=== PATIENT | female | born 1985 | race Caucasian/White ===

== ENCOUNTER → 2018-01-15 11:18 | Day surgery (SDC) | payer BC ==
[~2018-01-15 11:18] MED LIST: Acetaminophen TAB* 325 MG ONE; Acetaminophen TAB* 325 MG PO ONE; Acetaminophen TAB* 325 MG PO PRN; Buffered Lidocaine 0.9% SYRIN* 5 ML/SYR SYRINGE INTRADERM ONE; Buffered Lidocaine 0.9% SYRIN* 5 ML/SYR SYRINGE ONE; Bupivacaine 0.25% W/EPI* 10 ML SDV ONE; Clindamycin 900 MG/D5W BAG(*) 900 MG/50 ML BAG IVPB ONE; Dexamethasone IV* 4 MG/ML 1 ML (4 MG) ONE; DiMENhydriNATE IV* 50 MG/ML VIAL IV PUSH PRN; Famotidine IV* 10 MG/ML 2 ML (20 mg) ONE; Gentamicin ADULT (*) 300 MG in NS 0.9% 100 ML* 100 ML IVPB ONE; HYDROcodone/ACETAMIN 5-325 MG* 1 TAB ONE; HYDROcodone/ACETAMIN 5-325 MG* 1 TAB PO PRN; Ketorolac INJ* 30 MG/ML 1 ML VIAL ONE; Lidocaine 2% PF * 5 ML VIAL ONE; Midazolam* 1 MG/ML 2 ML VIAL (2 MG) ONE; Mivacurium Chloride* 20 MG/10 ML VIAL IV ONE; Naloxone* 0.4 MG/ML 1 ML VIAL IV PRN; Ondansetron INJ* 2 MG/ML VIAL IV PRN; Ondansetron INJ* 2 MG/ML VIAL ONE; PROCHLORPERAZINE INJ 5 MG/ML 2 ML VIAL IV PRN; Propofol* 10 MG/ML 20 ML BTL IV PUSH ONE; diPHENhydraMINE IV* 50 MG/ML 1 ml VIAL (BENADRYL) IV PRN; fentaNYL* 50 MCG/ML 2 ML VIAL (100 MCG VIAL) IV PRN; fentaNYL* 50 MCG/ML 2 ML VIAL (100 MCG VIAL) ONE
--- NOTE | 2018-01-15 17:34 | OP ---
Operative Report - Blank - Operative Report Date of Operation: 01/15/18 Note: Brief Operative Note Preop Dx: symptomatic cholelithiasis (vs polyp) Postop Dx: same Procedure: laparoscopic cholecystectomy Anesthesia: GET Surgeon: Toribio Day Care Aide: JUNE Ferris Fluids: 1400 ml RL EBL: < 25 ml Specimen: gallbladder Drains: none Findings: dictated
[2018-01-15 19:17] VITALS: BP 100/61
== END | disposition home or self-care (01) ==
LOC: OR 11:18
PROVIDERS: ATTEND Surgery
DX: K81.1 Chronic cholecystitis (principal); Z87.891 Personal history of nicotine dependence; F41.9 Anxiety disorder, unspecified
CPT/HCPCS: 81025; 88304; A9270-GY; J1100; J1580; J1885; J2250; J2405; J2704; J3010

== ENCOUNTER 2018-12-26 00:05 | Inpatient (IN) | payer BC ==
[2018-12-26] MEDS ORDERED: OBEPIDURAL* 250 ML EPIDURAL ONE (00:26)
[2018-12-26 00:36] LABS: Hematocrit 37 % (35-47); Hemoglobin 12.8 g/dL (12.0-16.0); Mean Corpuscular HGB Conc 35 g/dL (31-36); Mean Corpuscular Hemoglobin 31 pg (27-31); Mean Corpuscular Volume 90 fL (80-97); Mean Platelet Volume 8.6 fL (7.4-10.4); Platelet Count 234 10^3/uL (150-450); Red Blood Count 4.11 10^6 /uL (3.70-4.87); Red Cell Distribution Width 13 % (10-15); White Blood Count 15.2 10^3/uL (3.5-10.8)
[2018-12-26] MEDS ORDERED: Lactated Ringers 1000 ML Bag* 1,000 ML IV ONE ×2 (01:38→01:49)
[2018-12-26] MEDS ORDERED: Sodium Citrate/Citric Acid* 15 ML UDC PO PRN (01:38)
[2018-12-26] MEDS ORDERED: Famotidine TAB* 20 MG PO PRN (01:38)
[2018-12-26] MEDS ORDERED: Lactated Ringers 1000 ML Bag* 500 ML IV PRN ×2 (01:38)
[2018-12-26] MEDS ORDERED: Phenylephrine 40 MCG/ML SYRINGE IV PUSH PRN ×2 (01:38)
[2018-12-26] MEDS ORDERED: Buffered Lidocaine 1% SYRIN* 1 ML/SYRINGE INTRADERM ONE (01:49)
[2018-12-26] MEDS ORDERED: Lactated Ringers 1000 ML Bag* 1,000 ML IV SCH ×4 (02:00→09:00)
[2018-12-26] MEDS ORDERED: OBEPIDURAL* 250 ML EPIDURAL SCH (02:00)
--- NOTE | 2018-12-26 02:03 | HP ---
General Information - Reason for Visit Pt reports labor ctx increasing in frequency and intensity - General Information Maternal Age: 33 Grav: 3 Para: 1 SAB: 1 IEA: 0 Estimated Due Date: 01/02/19 Determined By: LMP Maternal Blood Type and Rh: A Positive - Results this Serology/RPR Result: Non-Reactive Rubella Result: Immune HBsAg Result: Negative HIV Result: Negative GBS Culture Result: Negative Past Medical History Delivery History: Hx Complicated Vaginal Delivery - meconium aspiration Pertinent Past Medical History: Non-Contributory Pertinent Past Surgical History: See Records - D&C, cholecystectomy Pertinent Family History: Non-Contributory - Antepartal Records Antepartal Records: Reviewed, Uncomplicated Review of Systems Constitutional: Comfortable - now that she has epidural, was very uncomfortable on arrival CV Complaint: No Respiratory: Shortness of Breath: No Gastrointestinal: No Nausea/Vomiting, Normal Bowel Movement Genitourinary: No Dysuria, No Bleeding, No Leaking Fluid Musculoskeletal: No Epigastric Pain, Contractions Neurological: No Headache, No Visual Changes Movement: Normal Exam Allergies/Adverse Reactions: Allergies No Known Allergies Allergy (Verified 12/26/18 01:38) T-97.0, P-94, R-22, O2-100%, BP-125/84 Lab Values - Entire Visit: Laboratory Tests 12/26/18 12/26/18 00:20 00:20 WBC 15.2 H RBC 4.11 Hgb 12.8 Hct 37 MCV 90 MCH 31 MCHC 35 RDW 13 Plt Count 234 MPV 8.6 Blood Type A Positive Antibody Screen Negative - Measurements Height: 5 ft 7 in Weight: 76.204 kg Weight in lbs: 168.345761 Body Mass Index (BMI): 26.3 Pre- Weight: 58.967 kg Weight Gained This : 38 lbs and 0 ozs - Exam Breast: Breast Exam Deferred CVA: No CVA Tenderness Extremities: No Edema Heart: Normal Rhythm/Heart Sounds HEENT: No Significant Findings Lungs: Clear Bilaterally Rectal: Rectal Exam Deferred Reflexes: DTR 2+ Thyroid: No Thyromegaly - Abdominal Exam Abdomen Exam: Non-Tender, Fundal Height Consistent with Dates - Ultrasound/Biophysical Profile Ultrasound Status: Not Done Targeted Exam Findings See L&D Outpatient Visit Provider Note for Findings: N/A Estimated Weight: 7.5# Cervical Exam: 8cm Effacement: 100% Station: +1 Presenting Part: Vertex Membrane Status: AROM - was bulging, AROM performed Amniotic Fluid Evaluation: Clear Bleeding/Discharge: Bloody Show EFM Findings - External Monitor Findings Baseline Heart Rate: 125 External Monitor Findings: Accelerations Present, No Pattern of Variable or Late Decelerations, Variability Moderate, Baseline Stable Contractions: Regular, Moderate, 45-90 Seconds Assessment/Plan - Assessment 33 year old at 39 0/7 weeks gestation in active labor, no evidence of acidemia or chorioamnionitis. Now comfortable with labor epidural. - Plan Plan: Admit - Anticipate Vaginal Delivery - Date/Time of Admission Date of Admission: 12/26/18 Time of Admission: 00:14
--- NOTE | 2018-12-26 03:11 | PN ---
Progress Note - Progress Note Date of Service: 12/26/18 SOAP: Subjective: Pt reports some increased pressure, also increased discomfort in right side. Objective: FHR: Baseline 130/ moderate variability/ + accels/ single isolated variable decel UCs: 2-3 minutes Cervix: anterior lip Assessment: Pt progressing well. No evidence of acidemia or chorioamnionitis. Plan: Position changes. Anticipate .
[2018-12-26 03:39] LABS: Urine Benzodiazepine Screen None Detected (None Detect); Urine Opiates Screen None Detected (None Detect)
[2018-12-26] MEDS ORDERED: Oxytocin in LR* 20 UNITS/1,000 ML BAG IVPB ONE (06:22)
[2018-12-26] MEDS ORDERED: Witch Hazel PAD* JAR ONE (07:04)
[2018-12-26] MEDS ORDERED: Dibucaine 1% 28.35 GM TUBE ONE (07:04)
[2018-12-26] MEDS ORDERED: Dibucaine 1% 28.35 GM TUBE PR PRN (08:21)
[2018-12-26] MEDS ORDERED: Witch Hazel PAD* JAR TOPICAL PRN (08:21)
[2018-12-26] MEDS ORDERED: Glycerin ADULT SUPP PR PRN (08:21)
--- NOTE | 2018-12-26 08:41 | PROCNOTE ---
[facility]: Delivery Note - Delivery A Date of : 12/26/18 Time of : 06:07 [place] Sex: Male Weight at : 3.87 kg Score 1 Minute: 9 Score 5 Minutes: 9 Gestational Age in Weeks and Days at Delivery: 39 Weeks and 0 Days Delivery Method: Spontaneous Vaginal Labor: Spontaneous Did Patient attempt ?: N/A, No Previous Amniotic Fluid: Clear Estimated Blood Loss: 200 Anesthesia/Analgesia: ITF/Spinal for Labor, CEI for Labor Delivered By: Leanna Arellano - Nursery Level of Nursery: Regular/Bedside - Perineum Perineal Injury: 1st Degree Perineal Repair: By Delivering Practioner - Events Delivery Events of Note: Pitocin Only After Delivery - Additional Delivery Notes Additional Delivery Notes: Pt admitted to L&D in active labor. Epidural requested and received with good pain relief. Pt made steady progress to complete dilation, coached on pushing, pushed with good effort and steady descent. in suspected OP position, then rotated during pushing and made rapid descent after. Pt coached through slow controlled delivery of the head. Shoulders followed easily. to maternal abdomen with vigorous cry and good tone, FHR> 100. After cord pulsation ceased, cord clamped x2 and cut by 's father. Placenta delivered spontaneously and jordon side. Bleeding minimal, prophylactic IV Pitocin initiated. Perineum edematous, with first degree laceration, repaired using absorbable suture resulting in good hemostasis and tissue approximation. Mother and infant stable at this time, anticipate normal course.
[2018-12-26] MEDS ORDERED: Oxytocin in LR* 20 UNITS/1,000 ML BAG IVPB SCH (09:00)
[2018-12-26] MEDS: Ibuprofen TAB* 600 MG PO PRN ×2 (09:56→16:28)
[2018-12-26] MEDS: Docusate CAP* 100 MG PO SCH ×3 (09:56→20:31)
[2018-12-26] MEDS ORDERED: Lidocaine 1% INJ* 10 MG/ML 30 ML SDV ONE (10:24)
[2018-12-26] MEDS: Acetaminophen TAB* 325 MG PO PRN ×2 (13:01→20:31)
[2018-12-26] MEDS ORDERED: Calcium Carbonate CHEW TAB* 500 MG (TUMS) PO PRN (15:59)
[2018-12-27] MEDS: Ibuprofen TAB* 600 MG PO PRN ×3 (01:05→14:18)
[2018-12-27 08:09] VITALS: BP 115/74
[2018-12-27 08:22] LABS: ABS Eosinophils 0.1 10^3/ul (0-0.6); ABS Lymphocytes 1.4 10^3/ul (1.0-4.8); ABS Monocytes 0.5 10^3/ul (0-0.8); ABS Neutrophils 8.2 10^3/ul (1.5-7.7); Eosinophil % 1.2 %; Hematocrit 31 % (35-47); Hemoglobin 11.1 g/dL (12.0-16.0); Lymphocyte % 13.5 %; Mean Corpuscular HGB Conc 36 g/dL (31-36); Mean Corpuscular Hemoglobin 32 pg (27-31); Mean Corpuscular Volume 91 fL (80-97); Mean Platelet Volume 8.3 fL (7.4-10.4); Platelet Count 191 10^3/uL (150-450); Red Blood Count 3.46 10^6 /uL (3.70-4.87); Red Cell Distribution Width 13 % (10-15); White Blood Count 10.3 10^3/uL (3.5-10.8)
[2018-12-27] MEDS ORDERED: Ferrous Gluconate TAB* 324 MG TAB PO SCH (09:00)
--- NOTE | 2018-12-27 12:01 | PTEDU ---
Patient Name: ROCKY JOSE ROCKY JOSE selected video: Follow Me Mum: [facility] to view on 12/28/19 19 at 11:58:29 [id number]
--- NOTE | 2018-12-27 12:31 | PTEDU ---
Patient Name: ROCKY JOSE ROCKY JOSE selected video: Follow Me Mum: [facility] to view on 12/28/19 19 at 12:28:25 [id number]
[2018-12-27] MEDS: Acetaminophen TAB* 325 MG PO PRN (14:17)
[2018-12-27] MEDS: Docusate CAP* 100 MG PO SCH (14:18)
== END 2018-12-27 15:05 | disposition home or self-care (01) | DRG 560 ==
LOC: MCHOBOUT 00:05 → MCHOB 00:14
PROVIDERS: ADMIT Midwife; ATTEND Midwife
PROC: 10E0XZZ Delivery of Products of Conception, External Approach (ICD-10-PCS; principal; 2018-12-26)
PROC: 10907ZC Drainage of Amniotic Fluid, Therapeutic from Products of Conception, Via Natural or Artificial Opening (ICD-10-PCS; 2018-12-26)
PROC: 0HQ9XZZ Repair Perineum Skin, External Approach (ICD-10-PCS; 2018-12-26)
DX: O70.0 First degree perineal laceration during delivery (principal); Z37.0 Single live birth; Z3A.39 39 weeks gestation of pregnancy
CPT/HCPCS: 36415; 80307; 85025; 85027; 86850; 86900; 86901; A9270-GY